=== PATIENT | male | born 1965 | race American Indian/Alaskan Native ===

== ENCOUNTER 2024-04-02 05:21 | Emergency (ER) | payer OTHER ==
[2024-04-02 05:33] VITALS: PULSE 72; RESP 18; TEMP 98.1; BMI 26.7
[2024-04-02] MEDS ORDERED: diazePAM 5 MG TABLET ONE (06:13)
[2024-04-02] MEDS ORDERED: LIDOCAINE 4% PATCH TP ONE (06:14)
[2024-04-02] MEDS ORDERED: ACETAMINOPHEN 325 MG TABLET (FP) ONE (06:14)
[2024-04-02] MEDS: LIDOCAINE 4% PATCH TP ONE (06:22)
[2024-04-02] MEDS: ACETAMINOPHEN 500 MG TABLET (FP) PO ONE (06:23)
[2024-04-02] MEDS: diazePAM 5 MG TABLET PO ONE (06:26)
[2024-04-02 06:56] VITALS: BP 135/79
[2024-04-02] MEDS ORDERED: LIDOCAINE PATCH REMOVAL MC SCH (22:00)
== END 2024-04-02 07:07 | disposition home or self-care (01) ==
LOC: JER 05:21
DX: M54.2 Cervicalgia (principal)
CPT/HCPCS: 99283-25

== ENCOUNTER 2024-11-07 06:43 | Day surgery (SDC) | payer OTHER ==
[2024-11-05 13:00] VITALS: BMI 28.0
[2024-11-07 08:01] VITALS: RESP 18; TEMP 98
[2024-11-07] MEDS ORDERED: ACETAMINOPHEN 500 MG TABLET (FP) PO PRN (08:49)
[2024-11-07] MEDS: LIDOCAINE HCL 1% PRESERVATIVE FREE - 30ML VIAL IJ ONE ×2 (08:49)
[2024-11-07] MEDS: DEXAMETHASONE SOD PHOSPHATE 10 MG/1 ML VIAL IVPUSH ONE ×2 (08:52)
[2024-11-07] MEDS: IOHEXOL 180 MG/1 ML ML IJ ONE ×2 (08:52)
[2024-11-07 10:11] VITALS: BP 144/78; PULSE 66
== END 2024-11-07 09:20 | disposition home or self-care (01) ==
LOC: JASU-SURG 06:43
PROVIDERS: ATTEND Pain Medicine Pain Medicine
PROC: 3E0R3BZ Introduction of Anesthetic Agent into Spinal Canal, Percutaneous Approach (ICD-10-PCS; 2024-11-07)
PROC: 3E0R33Z Introduction of Anti-inflammatory into Spinal Canal, Percutaneous Approach (ICD-10-PCS; principal; 2024-11-07 08:30)
DX: M54.16 Radiculopathy, lumbar region (principal); M48.061 Spinal stenosis, lumbar region without neurogenic claudication
CPT/HCPCS: 76000-TC-FY; J1100